=== PATIENT | female | born 2000 | race Two or more races ===

== ENCOUNTER 2024-02-10 10:14 | Emergency (ER) | payer OTHER ==
[~2024-02-10] VITALS: Ht 154.9 cm; Wt 62.1 kg
[2024-02-10] MEDS ORDERED: FOLIC ACID1 MG (10:22)
[2024-02-10] MEDS ORDERED: KEPPRA500 MG (10:22)
[2024-02-10 10:23] VITALS: BP 115/82; O2SAT 98
[2024-02-10 12:05] LABS: URINE APPEARANCE Clear; URINE BILIRRUBIN Negative (NEGATIVE); URINE BLOOD Negative; URINE COLOR Yellow; URINE GLUCOSE Negative (NEGATIVE); URINE KETONE Negative (NEGATIVE); URINE LEUKOCYTE Small; URINE NITRATE Negative; URINE PROTEIN Negative (NEGATIVE); URINE UROBILINOGEN 0.2 E.U./dl
[2024-02-10 12:08] LABS: URINE BACTERIA 1969.2 uL (0.0-1933); URINE EPITHELIAL CELLS 35.2 uL (0.0-38.8); URINE RBC 3.5 uL (0.0-20.8); URINE WBC 4.7 uL (0.0-23.2)
[2024-02-10 12:35] LABS: URINE CAST 0.15 uL (0.0-1.40)
[2024-02-10] MEDS ORDERED: MACRODANTIN100 M1 PO (12:52)
== END 2024-02-10 13:00 | disposition home or self-care (01) ==
LOC: ER 10:15
PROVIDERS: General Practice
DX: O23.40 Unspecified infection of urinary tract in pregnancy, unspecified trimester (principal); N39.0 Urinary tract infection, site not specified

== ENCOUNTER 2024-02-17 10:52 | Emergency (ER) | payer OTHER ==
[~2024-02-17] VITALS: Ht 154.9 cm; Wt 63.5 kg
[~2024-02-17 10:52] MED LIST: FOLIC ACID1 MG; KEPPRA500 MG; MACRODANTIN100 M1 PO
[2024-02-17 12:46] LABS: HEMATOCRIT 38.5 % (36.0-45.00); HEMOGLOBIN 13.3 g/dL (12.0-15.00); MEAN CELL VOLUME 80.8 fL (80.00-100.00); MEAN CORPUSCULAR HEMOGLOBIN 27.9 pg (27.00-32.0); MEAN CORPUSCULAR HGB CONC 34.5 g/dl (32.0-36.0); PLATELET COUNT 256 K/uL (150-450); RED BLOOD COUNT 4.77 M/uL (4.00-6.00); RED CELL DISTRIBUTION WIDTH 14.6 % (11.5-14.5)
[2024-02-17 13:27] LABS: CALCIUM 9.1 mg/dL (8.5-10.1); CREATININE SERUM 0.56 mg/dL (0.55-1.02); GFR 135.37; POTASSIUM 3.91 mEq/L (3.5-5.1)
[2024-02-17 15:55] VITALS: BP 100/60; O2SAT 96
[2024-02-17 16:17] LABS: PH,URINE 6.5 (5.0-8.0); URINE APPEARANCE Cloudy; URINE BILIRRUBIN Negative (NEGATIVE); URINE BLOOD Small; URINE COLOR Dark Yellow; URINE GLUCOSE Negative (NEGATIVE); URINE KETONE Negative (NEGATIVE); URINE LEUKOCYTE Large; URINE NITRATE Negative; URINE PROTEIN Negative (NEGATIVE); URINE UROBILINOGEN 0.2 E.U./dl
[2024-02-17 16:18] LABS: URINE CAST 1.83 uL (0.0-1.40); URINE EPITHELIAL CELLS 70.4 uL (0.0-38.8); URINE WBC 343.8 uL (0.0-23.2)
[2024-02-17 16:31] LABS: URINE BACTERIA > 9821.5 uL (0.0-1933)
== END 2024-02-17 17:11 | disposition home or self-care (01) ==
LOC: ER 10:53
PROVIDERS: General Practice
DX: O20.9 Hemorrhage in early pregnancy, unspecified (principal); O23.41 Unspecified infection of urinary tract in pregnancy, first trimester; N39.0 Urinary tract infection, site not specified; Z3A.01 Less than 8 weeks gestation of pregnancy

== ENCOUNTER 2024-07-04 12:59 | Outpatient (CLI) | payer OTHER | END 2024-07-04 13:23 | disposition home or self-care (01) | LOC: NST 12:59 | PROVIDERS: ATTEND Obstetrics & Gynecology Maternal & Fetal Medicine | DX: Z3A.26 26 weeks gestation of pregnancy (principal) ==

== ENCOUNTER 2024-08-26 15:18 | Outpatient (CLI) | payer OTHER ==
[2024-08-26 15:38] VITALS: BP 104/72
== END 2024-08-26 16:27 | disposition home or self-care (01) ==
LOC: NST 15:18
PROVIDERS: ATTEND Obstetrics & Gynecology
DX: Z34.83 Encounter for supervision of other normal pregnancy, third trimester (principal)

== ENCOUNTER 2024-09-23 11:07 | Inpatient (IN) | payer OTHER ==
[~2024-09-23] VITALS: Ht 154.9 cm; Wt 68.5 kg
[2024-10-02] MEDS ORDERED: [UNRECOGNIZED DRUG - OTHER] (11:08)
[2024-10-03 09:29] VITALS: BP 115/75
[2024-10-03 09:45] VITALS: BP 115/75
[2024-10-03 11:35] VITALS: BP 116/78
[2024-10-03 12:59] LABS: HEMATOCRIT 34.7 % (36.0-45.00); HEMOGLOBIN 11.2 g/dL (12.0-15.00); MEAN CELL VOLUME 72.7 fL (80.00-100.00); MEAN CORPUSCULAR HEMOGLOBIN 23.3 pg (27.00-32.0); MEAN CORPUSCULAR HGB CONC 32.1 g/dl (32.0-36.0); PLATELET COUNT 205 K/uL (150-450); RED BLOOD COUNT 4.78 M/uL (4.00-6.00)
[2024-10-03 13:00] LABS: RED CELL DISTRIBUTION WIDTH 18.7 % (11.5-14.5)
[2024-10-03 13:07] LABS: INR 0.97; PARTIAL THROMBOPLASTIN TIME 24.8 SECONDS (22.0-34.0); PROTHROMBIN TIME 10.6 SECONDS (9.0-11.5)
[2024-10-03 13:18] LABS: ALBUMIN 2.8 gm/dL (3.4-5.0); BILIRUBIN TOTAL 0.93 mg/dL (0.3-1.2); CALCIUM 8.7 mg/dL (8.5-10.1); CREATININE SERUM 0.47 mg/dL (0.55-1.02); GFR 164.21; GLOBULINA 3.3 G/DL (2.4-3.5); POTASSIUM 3.82 mEq/L (3.5-5.1); TOTAL PROTEIN 6.1 gm/dL (6.4-8.2)
[2024-10-03] MEDS ORDERED: OXYTOCIN 20 UNITS/500ML RL PIGGYBAG IV ONE (13:24)
[2024-10-03] MEDS ORDERED: OXYTOCIN 20 UNITS/500ML RL PIGGYBAG IV SCH (13:45)
[2024-10-03 15:34] VITALS: BP 136/76
[2024-10-03 19:42] VITALS: BP 127/67
[2024-10-03] MEDS ORDERED: OXYTOCIN 20 UNITS/1000ML RL PIGGYBAG IV ONE (20:41)
[2024-10-03] MEDS ORDERED: CHLORHEXIDINE GLUCONATE 120 ML BOTTLE TOP ONE (20:41)
[2024-10-03] MEDS ORDERED: LIDOCAINE HCL 1% 10ML VIAL ONE ×2 (20:41→20:42)
[2024-10-03] MEDS ORDERED: ERYTHROMYCIN BASE OPHT 1GM EACH TUBE OP ONE ×2 (20:41→21:52)
[2024-10-03] MEDS ORDERED: OXYTOCIN 10 UNITS/ML VIAL ONE (21:51)
[2024-10-03] MEDS ORDERED: CEFOXITIN SODIUM 2,000 MG VIAL IV ONE (21:54)
[2024-10-03] MEDS ORDERED: CITRIC ACID/SODIUM CITRATE 30 ML BLIST.PACK PO STA (22:02)
[2024-10-03] MEDS ORDERED: CEFOXITIN SODIUM 2,000 MG VIAL IV STA (22:02)
[2024-10-04] MEDS ORDERED: MORPHINE SULFATE 4 MG/ML VIAL IV ONE ×2 (00:10→00:40)
[2024-10-04] MEDS ORDERED: OXYTOCIN 1,000 ML IV SCH (01:45)
[2024-10-04] MEDS ORDERED: KETOROLAC TROMETHAMINE 30 MG VIAL IM ONE (01:45)
[2024-10-04] MEDS ORDERED: MORPHINE SULFATE 4 MG/ML CARTRIDGE IV PRN (01:45)
[2024-10-04] MEDS ORDERED: CEFAZOLIN SODIUM 1,000 MG VIAL IV SCH (01:45)
[2024-10-04] MEDS ORDERED: OXYTOCIN 10 UNITS/ML VIAL ONE (02:25)
[2024-10-04 03:57] VITALS: BP 115/71
[2024-10-04] MEDS ORDERED: KETOROLAC TROMETHAMINE 10 MG TABLET PO SCH (06:00)
[2024-10-04 06:50] LABS: HEMOGLOBIN 11.2 g/dL (12.0-15.00); MEAN CELL VOLUME 72.7 fL (80.00-100.00); MEAN CORPUSCULAR HEMOGLOBIN 23.2 pg (27.00-32.0); MEAN CORPUSCULAR HGB CONC 31.9 g/dl (32.0-36.0); PLATELET COUNT 226 K/uL (150-450); RED BLOOD COUNT 4.81 M/uL (4.00-6.00); RED CELL DISTRIBUTION WIDTH 18.8 % (11.5-14.5)
[2024-10-04] MEDS ORDERED: SIMETHICONE 125 MG CAPSULE PO SCH (09:00)
[2024-10-04 12:41] VITALS: BP 130/77
[2024-10-04 16:00] VITALS: BP 126/86
[2024-10-05 00:29] VITALS: BP 90/60
[2024-10-05 08:44] VITALS: BP 112/76
[2024-10-05 16:00] VITALS: BP 108/70
[2024-10-06] VITALS: BP 100/63; O2SAT 99
== END 2024-10-06 15:16 | disposition home or self-care (01) | DRG 788 ==
LOC: LDR 10-03 09:11 → O/R 10-03 22:27 → OB/GYN 10-04 00:27 → LDR 10-04 00:30 → OB/GYN 10-04 03:26
PROVIDERS: Obstetrics & Gynecology Maternal & Fetal Medicine; ADMIT Obstetrics & Gynecology; ATTEND Obstetrics & Gynecology
PROC: 4A1HXCZ Monitoring of Products of Conception, Cardiac Rate, External Approach (ICD-10-PCS; 2024-10-03)
PROC: 10D00Z1 Extraction of Products of Conception, Low, Open Approach (ICD-10-PCS; principal; 2024-10-03 23:00)
DX: O82 Encounter for cesarean delivery without indication (principal); O62.1 Secondary uterine inertia; Z3A.39 39 weeks gestation of pregnancy; Z37.0 Single live birth

== ENCOUNTER 2024-09-30 10:15 | Outpatient (CLI) | payer OTHER | END 2024-09-30 11:07 | disposition home or self-care (01) | LOC: NST 10:15 | PROVIDERS: ATTEND Obstetrics & Gynecology | DX: Z34.83 Encounter for supervision of other normal pregnancy, third trimester (principal) ==

== ENCOUNTER 2024-10-02 10:06 | Outpatient (CLI) | payer OTHER ==
[2024-10-02 09:14] VITALS: BP 119/86
[2024-10-02] MEDS ORDERED: [UNRECOGNIZED DRUG - OTHER] (11:08)
[2024-10-02] MEDS ORDERED: RINGERS SOLUTION,LACTATED 1,000 ML IV SCH (11:15)
[2024-10-02 13:29] VITALS: BP 119/74
== END 2024-10-02 13:29 | disposition home or self-care (01) ==
LOC: OBS/DEL 10:06
PROVIDERS: ATTEND Obstetrics & Gynecology
DX: O26.893 Other specified pregnancy related conditions, third trimester (principal); Z3A.39 39 weeks gestation of pregnancy